=== PATIENT | male | born 1990 | race Caucasian/White ===

== ENCOUNTER 2017-09-10 00:52 | Emergency (ER) | payer MEDICAID ==
[~2017-09-10] VITALS: Ht 175.3 cm; Wt 108.6 kg
[2017-09-10 00:55] VITALS: BP 139/90
[2017-09-10] MEDS ORDERED: AZITHROMYCIN 500 MG TABLET ONE (01:47)
[2017-09-10] MEDS ORDERED: CEFTRIAXONE 250 MG ONE (01:48)
[2017-09-10] MEDS ORDERED: AZITHROMYCIN 500 MG TABLET PO ONE (02:00)
[2017-09-10] MEDS ORDERED: CEFTRIAXONE 250 MG IM ONE (02:00)
== END 2017-09-10 03:54 | disposition home or self-care (01) ==
LOC: ED 03:06
DX: A56.01 Chlamydial cystitis and urethritis (principal); F12.10 Cannabis abuse, uncomplicated
CPT/HCPCS: 87491; 87591; 96372; 99284; J0696